=== PATIENT | male | born 1955 | race Caucasian/White ===

== ENCOUNTER 2019-02-19 07:36 | Inpatient (IN) | payer SELFPAY ==
[2019-02-19] MEDS: SODIUM CHLORIDE 0.9% FLUSH 10 ML SOL IV PRN ×2 (07:41→14:47)
[2019-02-19] MEDS ORDERED: NITROGLYCERIN 0.4 MG TAB SL ONE (07:42)
[2019-02-19] MEDS ORDERED: ASPIRIN 81 MG CHEWABLE CTB ONE (07:43)
[2019-02-19] MEDS: NITROGLYCERIN 0.4 MG TAB SL PRN ×2 (07:47→07:55)
[2019-02-19 07:59] LABS: BASOPHILS % (AUTO) 2 % (0-3); EOSINOPHILS % (AUTO) 0 % (0-9); HEMATOCRIT 44 % (39-53); LYMPHOCYTES % (AUTO) 5.6 % (10-50); MEAN CORPUSCULAR HEMOGLOBIN 30.2 pg (27.0-32.0); MEAN CORPUSCULAR HGB CONC 31.9 gm/dl (32.0-36.0); MEAN CORPUSCULAR VOLUME 95 fL (80-100); MONOCYTES % (AUTO) 9.5 % (0-12); NEUTROPHILS % (AUTO) 82.7 % (37-80)
[2019-02-19] MEDS ORDERED: MORPHINE SULFATE 10 MG/ML SOL IV ONE (08:00)
[2019-02-19] MEDS ORDERED: SODIUM CHLORIDE 0.9% 1000ML 1,000 ML IV ONE (08:00)
[2019-02-19] MEDS ORDERED: MORPHINE SULFATE 10 MG/ML SOL ONE (08:01)
[2019-02-19 08:05] LABS: INR 0.97 (0.86-1.12)
[2019-02-19 08:09] LABS: BLOOD UREA NITROGEN 13 mg/dl (7-18); CALCIUM 8.7 mg/dl (8.5-10.1); CHLORIDE 95 mMol/L (98-107); CREATINE KINASE 21 U/L (39-308); CREATININE 0.84 mg/dl (0.80-1.30); GLUCOSE 116 mg/dl (74-106); SODIUM 133 mMol/L (136-145); TROP I < 0.017 ng/ml (0.000-0.056)
[2019-02-19] MEDS ORDERED: KETOROLAC TROMETHAMINE 30 MG/ML SOL IV ONE (08:11)
[2019-02-19] MEDS ORDERED: KETOROLAC TROMETHAMINE 30 MG/ML SOL ONE (08:12)
[2019-02-19] MEDS ORDERED: POTASSIUM CHLORIDE 2 MEQ/ML 10 MEQ, LIDOCAINE HCL 1% MDV 2 ML in SODIUM CHLORIDE 0.9% 1... IV ONE (08:33)
[2019-02-19] MEDS ORDERED: POTASSIUM CHLORIDE 2 MEQ/ML SOL IV ONE ×2 (08:49→12:46)
[2019-02-19] MEDS ORDERED: HYDROMORPHONE 1 MG/ML SYRINGE IV ONE ×2 (09:28→14:39)
[2019-02-19] MEDS ORDERED: HYDROMORPHONE 1 MG/ML SYRINGE ONE (09:30)
[2019-02-19 09:35] LABS: APPEARANCE,URINE Clear; BILIRUBIN,URINE 1+ (NEGATIVE); COLOR,URINE Dark yellow; GLUCOSE, URINE (UA) NEGATIVE (NEGATIVE); KETONES,URINE NEGATIVE (NEGATIVE); LEUKOCYTE ESTERASE ,URINE NEGATIVE (NEGATIVE); NITRATE,URINE NEGATIVE (NEGATIVE); OCCULT BLOOD,URINE NEGATIVE (NEG-TRACE); PH,URINE 5.5
[2019-02-19] MEDS ORDERED: SODIUM CHLORIDE/KCL 20MEQ 1,000 ML IV ONE (10:03)
[2019-02-19 10:04] LABS: BACTERIA 1+ (< 1+); CRYSTALS 1+ AMORPHOUS URATES (0-3 AVE/HPF); EPITHELIAL CELLS 0-2 (SQUAMOUS); ICTOTEST,URINE NEGATIVE (NEGATIVE); RBC,URINE 0-1 (0-3AV/HPF); WBC,URINE 0-2 (0-5AV/HPF)
[2019-02-19] MEDS ORDERED: SODIUM CHLORIDE 0.9% 50 ML 25 ML IV PRN (10:31)
[2019-02-19] MEDS ORDERED: LEVOFLOXACIN 500 MG (PREMIX) 500 MG/100 ML SOL IV ONE ×2 (10:31→11:02)
[2019-02-19] MEDS ORDERED: ALBUTEROL/IPRATROPIUM 1 VIAL SOL INH ONE (10:40)
[2019-02-19] MEDS ORDERED: ALBUTEROL/IPRATROPIUM 1 VIAL SOL ONE (11:01)
[2019-02-19] MEDS ORDERED: POTASSIUM CHLORIDE 2 MEQ/ML 60 MEQ, LIDOCAINE HCL 1% MDV 2 ML in SODIUM CHLORIDE 0.9% 1... IV ONE (11:43)
[2019-02-19] MEDS ORDERED: ALBUTEROL NEB SOL 2.5MG/3ML 1 VIAL SOL NEB PRN (11:46)
[2019-02-19] MEDS: SODIUM CHLORIDE 0.9% FLUSH 10 ML SOL IV SCH ×2 (12:40→19:40)
[2019-02-19] MEDS ORDERED: LIDOCAINE HCL 1% MPF 30 SOL ONE (12:45)
[2019-02-19] MEDS: ALBUTEROL/IPRATROPIUM 1 VIAL SOL INH SCH ×3 (13:00→23:53)
[2019-02-19] MEDS: APAP/HYDROCODONE 1 EACH TABLET PO PRN (19:40)
[2019-02-20] MEDS: APAP/HYDROCODONE 1 EACH TABLET PO PRN ×6 (01:10→22:32)
[2019-02-20] MEDS: SODIUM CHLORIDE 0.9% FLUSH 10 ML SOL IV SCH ×4 (03:34→21:42)
[2019-02-20] MEDS: ALBUTEROL/IPRATROPIUM 1 VIAL SOL INH SCH ×3 (05:38→16:45)
[2019-02-20 07:39] LABS: CALCIUM 7.8 mg/dl (8.5-10.1); CARBON DIOXIDE 26.2 mEq/L (21-32); CREATININE 0.72 mg/dl (0.80-1.30)
[2019-02-20 07:46] LABS: POTASSIUM 2.8 mMol/L (3.5-5.1)
[2019-02-20] MEDS ORDERED: POTASSIUM CHLORIDE 2 MEQ/ML 60 MEQ, LIDOCAINE HCL 1% MDV 2 ML in SODIUM CHLORIDE 0.9% 1... IV ONE (07:48)
[2019-02-20 07:53] LABS: BASOPHILS % (AUTO) 2 % (0-3); EOSINOPHILS % (AUTO) 1 % (0-9); HEMATOCRIT 35 % (39-53); HEMOGLOBIN 11.5 gm/dl (13.5-17.7); MEAN CORPUSCULAR HEMOGLOBIN 30.7 pg (27.0-32.0); MEAN CORPUSCULAR HGB CONC 32.9 gm/dl (32.0-36.0); MEAN CORPUSCULAR VOLUME 93 fL (80-100); MONOCYTES % (AUTO) 11.5 % (0-12); NEUTROPHILS % (AUTO) 76.1 % (37-80)
[2019-02-20] MEDS ORDERED: POTASSIUM CHLORIDE 2 MEQ/ML SOL IV ONE (08:02)
[2019-02-20] MEDS ORDERED: LIDOCAINE HCL 1% MPF 30 SOL ONE (08:02)
[2019-02-20] MEDS ORDERED: LEVOFLOXACIN 25 MG/ML SOL IV ONE (10:17)
[2019-02-20] MEDS: SODIUM CHLORIDE 0.9% FLUSH 10 ML SOL IV PRN ×2 (11:33→13:23)
[2019-02-20] MEDS: LEVOFLOXACIN 750MG/150 ML (PM) 750 MG/150 ML SOL IV SCH (11:35)
[2019-02-20] MEDS ORDERED: POTASSIUM CHLORIDE 10 MEQ TER PO ONE ×3 (18:00→21:30)
[2019-02-20] MEDS ORDERED: KETOROLAC TROMETHAMINE 30 MG/ML SOL IV PRN (20:21)
[2019-02-21] MEDS: APAP/HYDROCODONE 1 EACH TABLET PO PRN (03:46)
[2019-02-21] MEDS: SODIUM CHLORIDE 0.9% FLUSH 10 ML SOL IV SCH ×2 (04:52→11:44)
[2019-02-21] MEDS: ALBUTEROL/IPRATROPIUM 1 VIAL SOL INH SCH ×3 (05:58→11:11)
[2019-02-21 07:26] LABS: BASOPHILS % (AUTO) 1 % (0-3); EOSINOPHILS % (AUTO) 2 % (0-9); HEMATOCRIT 35 % (39-53); HEMOGLOBIN 11.2 gm/dl (13.5-17.7); MEAN CORPUSCULAR HEMOGLOBIN 30.8 pg (27.0-32.0); MEAN CORPUSCULAR HGB CONC 32.3 gm/dl (32.0-36.0); MEAN CORPUSCULAR VOLUME 95 fL (80-100); MONOCYTES % (AUTO) 6.4 % (0-12); NEUTROPHILS % (AUTO) 71.8 % (37-80)
[2019-02-21 07:34] LABS: CALCIUM 8.4 mg/dl (8.5-10.1); CARBON DIOXIDE 26.3 mEq/L (21-32); CREATININE 0.78 mg/dl (0.80-1.30); POTASSIUM 3.6 mMol/L (3.5-5.1)
[2019-02-21 11:12] VITALS: O2SAT 95
[2019-02-21 11:15] VITALS: BP 159/80
[2019-02-21 11:16] VITALS: TEMP 99.5
[2019-02-21] MEDS: LEVOFLOXACIN 750MG/150 ML (PM) 750 MG/150 ML SOL IV SCH (11:45)
[2019-02-21 11:46] VITALS: PULSE 79; RESP 20
== END 2019-02-21 12:10 | disposition home or self-care (01) | DRG 195 ==
LOC: SUPCPDRO 07:36 → ED 07:36 → ACUTE CARE 11:35 → UNDOADMIN 11:35 → ACUTE CARE 12:10
PROVIDERS: ADMIT Family Medicine; ATTEND Family Medicine
DX: J18.1 Lobar pneumonia, unspecified organism (principal); R09.1 Pleurisy; R00.0 Tachycardia, unspecified; R79.89 Other specified abnormal findings of blood chemistry; R07.9 Chest pain, unspecified; E87.6 Hypokalemia; R06.02 Shortness of breath
CPT/HCPCS: 36415; 71045; 71275; 80048; 81001; 82550; 84132; 84484; 85025; 85378; 85610; 85730; 87040; 93005; 93012; 94150; 94640; 94664; 94762; 96365; 96366; 96374; 96375; 99070; 99285; 99291; J1885; J1956; J2270; J3480; J7613; Q9967; A9270-GY; J1170; J2001